=== PATIENT | male | born 1990 | race Caucasian/White ===

== ENCOUNTER 2017-12-21 23:10 | Emergency (ER) | payer BC ==
[~2017-12-21] VITALS: Ht 188 cm; Wt 112.5 kg
[2017-12-21] MEDS ORDERED: DOXYCYCLINE 10100 MG PO (23:31)
[2017-12-22 00:11] LABS: URINE BILIRUBIN NEGATIVE (Negative); URINE BLOOD NEGATIVE (Negative); URINE CLARITY CLEAR; URINE COLOR YELLOW; URINE GLUCOSE-RANDOM* NEGATIVE (Negative); URINE KETONES NEGATIVE (Negative); URINE LEUKOCYTES-REFLEX NEGATIVE (Negative); URINE NITRITE-REFLEX NEGATIVE (Negative); URINE PROTEIN (DIPSTICK) NEGATIVE (Negative); URINE SPECIFIC GRAVITY <= 1.005 (1.005-1.035); URINE UROBILINOGEN 0.2 E.U./dl (0.2-1.0)
[2017-12-22 00:33] LABS: ABSOLUTE NEUTROPHILS 4.9 thou/uL (1.4-8.2); BASOPHILS 0.7 % (0.0-2.0); EOSINOPHILS 4.2 % (0.0-3.0); HEMATOCRIT 44.3 % (42.0-52.0); HEMOGLOBIN 15.5 gm/dL (14.0-18.0); LYMPHOCYTES 25.2 % (24.0-44.0); MCH 29.2 pg (26.0-34.0); MCHC 34.9 g/dL (28.0-37.0); MCV 83.5 fL (80.0-100.0); MONOCYTES 9.2 % (1.0-8.0); PLATELET COUNT 194 thou/uL (150-400); POLYS 60.7 % (36.0-66.0); RDW 13.2 % (10.5-14.5); WBC 8.1 thou/uL (4.0-11.0)
[2017-12-22 01:18] LABS: CALCIUM 9.8 mg/dL (8.5-10.1); CREATININE 1.1 mg/dL (0.7-1.3); POTASSIUM 3.7 mmol/L (3.5-5.1)
[2017-12-22 02:03] VITALS: BP 145/79
== END 2017-12-22 02:04 | disposition home or self-care (01) ==
LOC: ER 23:10
PROVIDERS: Emergency Medicine
DX: M79.10 Myalgia, unspecified site (principal); N50.812 Left testicular pain